=== PATIENT | male | born 1960 | race Caucasian/White ===

== ENCOUNTER 2016-10-03 09:56 | Emergency (ER) | payer SELFPAY ==
[~2016-10-03] VITALS: Ht 182.9 cm; Wt 65.0 kg
[2016-10-03 10:00] VITALS: BP 189/110; PULSE 80; RESP 16; TEMP 98; O2SAT 100
--- NOTE | 2016-10-03 10:19 | PD ---
HPI Chief Complaint: Complaint Time Seen by Provider: 10:09 Travel History International Travel<30 days: No Contact w/Intl Traveler<30days: No Traveled to known affect area: No History of Present Illness HPI This is a 56-year-old male who presents to the emergency department with a lump in his left testicle, constant, moderate severity associated with some discomfort that's been going on for 1 month. He denies any penile discharge, fevers or chills. He's also had intermittent pains in his left buttock that radiates down to his left leg. He wasn't sure if these she thinks are related. He does have an old injury to his left leg. PFSH Past Medical History Cardiovascular Problems: Yes (HTN ) Social History Tobacco Use: Yes Allergies-Medications (Allergen,Severity, Reaction): Coded Allergies: No Known Allergies (Unverified , 10/03/16) Reported Meds & Prescriptions Reported Meds & Active Scripts Active No Active Prescriptions or Reported Medications Review of Systems Except as stated in HPI: all other systems reviewed are Neg Physical Exam Narrative GENERAL:Well appearing, no acute distress SKIN: Focused skin assessment warm and dry. HEAD: Atraumatic. Normocephalic. EYES: Pupils equal and round. No injection or drainage. ENT: Moist mucous membranes NECK: Trachea midline. CARDIOVASCULAR: Regular rate and rhythm. No murmur appreciated. 1+ DP pulses bilaterally. Left lower extremity is slightly cooler than the right. RESPIRATORY: Clear to auscultation. Breath sounds equal bilaterally. GASTROINTESTINAL: Abdomen soft, non-tender, nondistended. : Left testicular swelling, soft and nontender with no warmth MUSCULOSKELETAL: No obvious deformities. NEUROLOGICAL: Awake and alert. No obvious cranial nerve deficits. Moving all extremities. PSYCHIATRIC: Appropriate mood and affect; insight and judgment normal. Data Data Last Documented VS Vital Signs Date Time Temp Pulse Resp B/P Pulse Ox O2 Delivery O2 Flow Rate FiO2 10/03/16 11:20 99 Room Air 10/03/16 10:00 98.0 80 16 189/110 Orders Us Testicles W Doppler (10/03/16 ) [facility] Medical Decision Making Medical Screen Exam Complete: Yes Emergency Medical Condition: Yes Interpretation(s) Ultrasound: Left hydrocele Differential Diagnosis Hernia, testicular cancer, hydrocele, varicocele Narrative Course This is a 56-year-old male who presents to the emergency department with swelling of his left testicle. He has a benign exam. Ultrasound demonstrates a left testicular hydrocele. Patient is also reporting some shooting pains down his left leg. I think he may have chronic peripheral arterial disease and I did advise him of this. I don't think it merits further workup in the emergency department. Patient was discharged home. Diagnosis Primary Impression: Hydrocele Qualified Code: N43.3 - Hydrocele, unspecified hydrocele type Referrals: Lance Felix DO Patient Instructions: General Instructions Additional Instructions: If you develop severe pain return to the emergency department. Follow up with a urologist. Med/Other Pt SpecificInfo: No Change to Meds Scripts No Active Prescriptions or Reported Meds Disposition: 01 DISCHARGE HOME Condition: Stable Vicky Spence MD Oct 03, 2016 10:19
[2016-10-03 11:20] VITALS: O2SAT 99
--- NOTE | 2016-10-03 12:08 | RADRPT ---
EXAM DATE/TIME: 10/03/2016 10:59 [facility] COMPARISON: No previous studies available for comparison. INDICATIONS : Left testicle pain. MEDICAL HISTORY : Hypertension. SURGICAL HISTORY : Orthopedic surgery. ENCOUNTER: Initial ACUITY: 1 month PAIN SCORE: 4/10 LOCATION: Left testicle. MEASUREMENTS: RIGHT TESTICLE: 2.8 x 2.2 x 4.4cm LEFT TESTICLE: 3.0 x 3.1 x 2.9cm FINDINGS: The testicles are normal in echotexture without mass. Normal blood flow identified on color Doppler i maging. 4 mm right epididymal head cyst. There is a large left-sided hydrocele greatest superiorly me asuring 5.6 x 3.2 x 5.6 cm.CONCLUSION: 1. Large left hydrocele. 2. Normal testicles. Cecil Gonzales MD on October 03, 2016 at 12:05 Board Certified Radiologist. This report was verified electronically.
[2016-10-03 12:29] VITALS: BP 154/94
== END 2016-10-03 12:37 | disposition home or self-care (01) ==
LOC: NEPD 09:56
DX: N43.3 Hydrocele, unspecified (principal); Z72.0 Tobacco use
CPT/HCPCS: 76870; 93975